=== PATIENT | male | born 1965 | race Caucasian/White ===

== ENCOUNTER 2023-06-13 16:00 | Emergency (ER) | payer MEDICARE, MEDICAID ==
[~2023-06-13] VITALS: Ht 198.1 cm; Wt 184.1 kg
[~2023-06-13 16:00] MED LIST: ASPIRIN 81M81 MG/TA2 PO; CELEXA 20MG20 MG/TAB PO; COREG12.5 MG; FLOVENT DI250 MCG/Ac IH; GLUCOPHAGE850 MG/TAB PO; HUMALOG100 U/ML SQ; LANOXIN 0.25M0.25 MG PO; LASIX 40MG TABL40 MG PO; LEVEMIR100 U/ML SQ; MICRO-K 10 EXT10 MEQ PO; NAPROSYN500 MG PO; PLAQUENIL 200M200 MG PO; PRINIVIL40 MG PO; ZOCOR 20MG20 MG PO
[2023-06-13 16:10] VITALS: BP 151/96; TEMP 98
[2023-06-13] MEDS ORDERED: AMOXICILLIN 8751 TAB PO (17:32)
[2023-06-13 17:49] VITALS: PULSE 81
== END 2023-06-13 17:49 | disposition home or self-care (01) ==
LOC: COL.ER 16:00
DX: E11.621 Type 2 diabetes mellitus with foot ulcer (principal); L97.529 Non-pressure chronic ulcer of other part of left foot with unspecified severity; L97.519 Non-pressure chronic ulcer of other part of right foot with unspecified severity; Z88.2 Allergy status to sulfonamides